=== PATIENT | male | born 1955 | race Caucasian/White ===

== ENCOUNTER 2017-07-01 08:40 | Day surgery (SDC) | payer OTHER ==
[~2017-07-01] VITALS: Ht 193 cm; Wt 94.2 kg
[~2017-07-01 08:40] MED LIST: BUPIVACAINE/PF 0.5% ONE; NAPR220C2 PO
[2017-07-01 09:11] VITALS: BP 115/76
[2017-07-01] MEDS ORDERED: LACTATED RINGERS 1,000 ML IV SCH (09:12)
[2017-07-01] MEDS ORDERED: LIDOCAINE 1%, 2ML SQ PRN (09:30)
[2017-07-01] MEDS ORDERED: MIDAZOLAM 1 MG/ML, 2ML ONE (09:47)
[2017-07-01] MEDS ORDERED: FENTANYL PF 100 MCG/2ML ONE ×3 (09:47→11:26)
[2017-07-01] MEDS ORDERED: PROPOFOL 10 MG/ML, 20ML ONE (09:48)
[2017-07-01] MEDS ORDERED: ROCURONIUM 10 MG/ML,10ML ONE (09:49)
[2017-07-01] MEDS ORDERED: CEFAZOLIN 1,000 MG ONE ×2 (09:50)
[2017-07-01] MEDS ORDERED: NEOSTIGMINE 1 MG/ML, 10ML ONE (09:50)
[2017-07-01] MEDS ORDERED: GLYCOPYRROLATE 0.4 MG/2 ML, 2ML ONE (09:50)
[2017-07-01] MEDS ORDERED: HYDROmorphone 1 MG/ML, 1ML IV PRN (10:30)
[2017-07-01] MEDS ORDERED: OXYcodone 5 MG/5 ML ORAL.SOL UDC PO PRN (10:30)
[2017-07-01] MEDS ORDERED: MEPERIDINE/PF 25MG/0.5ML IVPush PRN (10:30)
[2017-07-01] MEDS ORDERED: PROMETHAZINE 25 MG/ML, 1ML IV PRN (10:30)
[2017-07-01] MEDS ORDERED: ACETAMINOPHEN 325 MG TABLET PO PRN (10:30)
[2017-07-01] MEDS ORDERED: ONDANSETRON 2MG/ML, 2ML IVPush PRN (10:30)
[2017-07-01] MEDS ORDERED: hydrALAzine 20 MG/ML, 1ML IV PRN (10:30)
[2017-07-01] MEDS ORDERED: LABETALOL 5MG/ML, 20ML IV PRN (10:30)
[2017-07-01] MEDS ORDERED: KETOROLAC 30 MG/1 ML ONE (10:49)
[2017-07-01] MEDS ORDERED: BUPIVACAINE/PF-EPI 0.5% 1:200K IM ONE (10:51)
[2017-07-01] MEDS ORDERED: ACETAMINOPHEN 325 MG TABLET ONE (11:26)
[2017-07-01] MEDS ORDERED: OXYcodone 5 MG/5 ML ORAL.SOL UDC ONE (11:26)
[2017-07-01] MEDS: FENTANYL PF 100 MCG/2ML IV PRN ×3 (11:30→11:46)
== END 2017-07-01 13:15 ==
LOC: OUT 08:40
PROVIDERS: ATTEND Surgery
DX: K40.90 Unilateral inguinal hernia, without obstruction or gangrene, not specified as recurrent (principal); D17.6 Benign lipomatous neoplasm of spermatic cord; F17.210 Nicotine dependence, cigarettes, uncomplicated; Z72.89 Other problems related to lifestyle
CPT/HCPCS: 49650; C1781; J0690; J1885; J2250; J2704; J2710; J3010; J3490; J7120; S2900